=== PATIENT | female | born 1955 | race African-American/Black ===

== ENCOUNTER 2018-12-11 03:37 | Emergency (ER) | payer MEDICARE ==
[2018-12-11] MEDS ORDERED: NALOXONE HCL INJ/PF 0.4 MG/1 ML SDV ONE (03:41)
[2018-12-11] MEDS ORDERED: RINGERS SOLUTION,LACTATED 1,000 ML IV ONE (03:49)
--- NOTE | 2018-12-11 03:51 | ER Document Report ---
ED General <VIDAL JOSEPHN C - Last Filed: 12/11/18 05:23> <BROOKLYN JOSEPH A - Last Filed: 12/11/18 10:54> - General Chief Complaint: Shortness Of Breath Stated Complaint: DIFFICULTY BREATHING Time Seen by Provider: 12/11/18 03:49 Notes: Patient is a 63-year-old female with history of hypertension that presents to the emergency department for chief complaint of shortness of breath. Patient apparently woke up feeling short of breath, she did have outpatient dental surgery earlier today with anesthesia, was discharged home with oxycodone, ibuprofen and penicillin. She has been having episodes where she is feeling dizzy, and having brief episodes of feeling short of breath when she is breathing heavy and that is of brought her to the emergency department. She denies having any chest pain associated with this, denies fevers, chills, night sweats, nausea, vomiting, abdominal pain, dysuria hematuria. She states she had 2 molars extracted in her upper right mouth. Past Medical History: Hypertension Past Surgical History: Social History: Denies tobacco, alcohol or drug use. Family History: Reviewed and noncontributory for presenting illness Allergies: Reviewed, see documented allergy list. REVIEW OF SYSTEMS: Other than noted above, the 12 point review of systems was reviewed with the patient and were negative, all pertinent findings are included in the HPI. PHYSICAL EXAMINATION: Vital signs reviewed, nursing noted reviewed. GENERAL: Patient appears, anxious on exam with somewhat of a bizarre affect HEAD: Atraumatic, normocephalic. EYES: Eyes appear normal, extraocular movements intact, sclera anicteric, conjunctiva are normal. PERRLA, but pupils are constricted ENT: nares patent, oropharynx clear without exudates. Moist mucous membranes. The patient's upper right posterior molars, have been extracted, and no active bleeding, appear to be healing well from recent extraction. NECK: Normal range of motion, supple without lymphadenopathy LUNGS: Rapid shallow breathing, however lungs are clear to auscultation bilaterally. HEART: Heart rate mildly bradycardic, regular rhythm, no audible murmur. ABDOMEN: Soft, nontender, normoactive bowel sounds. No rebound, guarding, or rigidity. No masses appreciated. EXTREMITIES: Nontender, good range of motion, no pitting or edema. NEUROLOGICAL: No focal neurological deficits. Moves all extremities spontaneously Motor and sensory grossly intact on exam. PSYCH: Bizarre affect, appears mildly anxious SKIN: Warm, Dry, normal turgor, no rashes or lesions noted on exposed skin (TATI JOSEPH) - Related Data Allergies/Adverse Reactions: Iodinated Contrast- Oral and IV Dye Allergy (Verified 12/11/18 07:41) Past Medical History - Social History Smoking Status: Never Smoker Family History: CAD <BROOKLYN JOSEPH - Last Filed: 12/11/18 10:54> - Vital signs Vitals: Resp 13 12/11/18 03:42 Course - Laboratory Result Diagrams: 12/11/18 03:45 12/11/18 03:45 <TATI JOSEPH - Last Filed: 12/11/18 05:23> - Laboratory Result Diagrams: 12/11/18 03:45 12/11/18 03:45 <BROOKLYN JOSEPH - Last Filed: 12/11/18 10:54> - Re-evaluation Re-evalutation: Patient seen and examined vital signs reviewed. Laboratory data and/or imaging were ordered as appropriate for the patient's presenting symptoms and complaint, with consideration of any critical or life threatening conditions that may be associated with their obtained history and exam as noted above. Patient was treated with IV Narcan 0.4 mg, given she is recently started on oxycodone, she had a total of 3 tablets this evening, patient did have an i ncrease in her heart rate, but was still having intermittently rapid breathing. Results were reviewed when available and demonstrated unremarkable work-up, negative CT of the head, negative CBC, unremarkable CMP, negative troponin, EKG demonstrated sinus rhythm without concerning for ischemia, chest x-ray negative as well. I did order a d-dimer, that was slightly elevated, patient has an allergy to IVP dye, therefore VQ scan was ordered, I do have a low suspicion for PE, given the patient just had surgery, but given the patient's having intermittent rapid breathing and dyspnea, did want to rule this out and therefore will pursue the VQ scan. The patient was re-evaluated and was still appearing rather anxious, I advised her to to try to control her breathing, by breathing through nose and out her mouth, I did offer to give her a low-dose of IV Ativan, but she wanted to try to slow her breathing on her own. She did appear anxious, and I think she may be having a panic attack versus side effect from anesthesia/oxycodone. At this point, I will sign out the VQ scan to my colleague, Dr. Kirsten Joseph, to follow-up on that and to review the results with the patient. *Note is created using voice recognition software and may contain spelling, syntax or grammatical errors. (TATI JOSEPH) 12/11/18 10:45 Patient seen and evaluated by myself. She has normal respirations. She is in no acute distress. She states she is feeling much better. Her VQ scan is normal. At this point I agree that her symptoms may have been a side effect from the pain medication and anesthesia. She was advised to take Tylenol and ibuprofen instead of the Percocet. Currently she states she does not have any postoperative pain. She was advised to follow with a primary care provider in the area. She will return for new or worsening symptoms. She is stable and in agreement with plan of care at discharge. (BROOKLYN JOSEPH) - Vital Signs Vital signs: Temp Pulse Resp BP Pulse Ox 97.4 F 12 125/71 97 12/11/18 03:45 12/11/18 09:17 12/11/18 09:17 12/11/18 09:17 - Laboratory Laboratory results interpreted by me: 12/11/18 12/11/18 12/11/18 03:42 03:45 03:45 D-Dimer 0.59 H Glucose 151 H POC Glucose 145 H AST 47 H Urine Ketones 12/11/18 06:38 D-Dimer Glucose POC Glucose AST Urine Ketones TRACE H Discharge <TATI JOSEPH - Last Filed: 12/11/18 05:23> <BROOKLYN JOSEPH - Last Filed: 12/11/18 10:54> - Discharge Clinical Impression: Shortness of breath Condition: Stable Disposition: HOME, SELF-CARE Instructions: Dyspnea, Nonspecific ([facility]), Anxiety ([facility]) Additional Instructions: Please return to the emergency department if you have any worsening, or concern of your symptoms. Please return to the emergency department if you develop chest pain, difficulty breathing, severe abdominal pain, or ongoing vomiting. Please follow-up with your primary care physician in 2-3 days and any other recommended physicians. If prescribed, take all medications as directed. If you have any questions or concerns do not hesitate to return the emergency department for evaluation. Referrals: [facility] [Provider Group] - Follow up as needed
[2018-12-11 03:59] LABS: ABSOLUTE LYMPHOCYTES (AUTO) 1.6 10^3/uL (0.5-4.7); ABSOLUTE MONOCYTES (AUTO) 0.5 10^3/uL (0.1-1.4); ABSOLUTE NEUT (AUTO) 5.1 10^3/uL (1.7-8.2); BASOPHILS % (AUTO) 0.6 % (0-2); EOSINOPHILS % (AUTO) 0.6 % (0-6); HEMATOCRIT 43.8 % (36.0-47.0); HEMOGLOBIN 14.4 g/dL (12.0-15.5); LYMPHOCYTES % (AUTO) 22.3 % (13-45); MEAN CORPUSCULAR HEMOGLOBIN 27.7 pg (27.0-33.4); MEAN CORPUSCULAR HGB CONC 32.8 g/dL (32.0-36.0); MEAN CORPUSCULAR VOLUME 85 fl (80-97); MONOCYTES % (AUTO) 6.4 % (3-13); PLATELET COUNT 183 10^3/uL (150-450); RED BLOOD COUNT 5.19 10^6/uL (3.72-5.28); RED CELL DISTRIBUTION WIDTH 13.9 % (11.5-14.0); SEGMENTED NEUTROPHILS % (AUTO) 70.1 % (42-78); TOTAL CELLS COUNTED % (AUTO) 100 %; WHITE BLOOD COUNT 7.2 10^3/uL (4.0-10.5)
--- NOTE | 2018-12-11 04:21 | RADIOLOGY REPORT (SQ) ---
EXAM DESCRIPTION: XR CHEST 1 VIEW COMPLETED DATE/TME: 12/11/2018 03:50 CLINICAL HISTORY: 63 years, Female, DYSPNEA COMPARISON: None. NUMBER OF VIEWS: One TECHNIQUE: AP view the chest LIMITATIONS: None. FINDINGS: The lungs are clear. The heart is normal in size. There is no pneumothorax or pleural effusion. There is no acute fracture. IMPRESSION: No acute cardiopulmonary abnormality. copyright 2010 [employer]- All Rights Reserved
--- NOTE | 2018-12-11 04:22 | RADIOLOGY REPORT (SQ) ---
EXAM DESCRIPTION: CT HEAD WITHOUT IV CONTRAST COMPLETED DATE/TME: 12/11/2018 03:52 CLINICAL HISTORY: 63 years, Female, ALTERED MENTAL STATUS COMPARISON: None. TECHNIQUE: Axial CT images of the brain were obtained without contrast. Sagittal and coronal reformats were performed. [facility] Images stored on PACS. All CT scanners at this facility use dose modulation, iterative reconstruction, and/or weight based dosing when appropriate to reduce radiation dose to as low as reasonably achievable (ALARA). [facility]: Dose Right [facility]: CareDose [facility]: Dose Right [facility]: Teradose 4D [facility]: [employer] LIMITATIONS: None. FINDINGS: There is no acute cortical infarct, hemorrhage, mass, edema, hydrocephalus, or extra-axial fluid collection. The astorga-white matter differentiation is preserved. There are periventricular and deep white matter chronic microvascular changes. The paranasal sinuses and mastoid air cells are clear. There is no acute fracture. IMPRESSION: No acute intracranial abnormality. TECHNICAL DOCUMENTATION: Quality ID # 436: Final reports with documentation of one or more dose reduction techniques (e.g., Automated exposure control, adjustment of the mA and/or kV according to patient size, use of iterative reconstruction technique) copyright 2010 [employer]- All Rights Reserved
[2018-12-11 04:23] LABS: ALANINE AMINOTRANSFERASE 33 U/L (9-52); ALBUMIN 4.5 g/dL (3.5-5.0); ALKALINE PHOSPHATASE 59 U/L (38-126); ANION GAP 9 (5-19); ASPARTATE AMINO TRANSFERASE 47 U/L (14-36); BILIRUBIN,DIRECT 0.3 mg/dL (0.0-0.4); BILIRUBIN,TOTAL 0.5 mg/dL (0.2-1.3); BLOOD UREA NITROGEN 7 mg/dL (7-20); CARBON DIOXIDE 28 mmol/L (22-30); CHLORIDE 106 mmol/L (98-107); GLUCOSE 151 mg/dL (75-110); POTASSIUM 4.2 mmol/L (3.6-5.0); SODIUM 142.9 mmol/L (137-145); TOTAL PROTEIN 7.8 g/dL (6.3-8.2)
[2018-12-11 06:51] LABS: APPEARANCE,URINE CLEAR; BILIRUBIN,URINE NEGATIVE (NEGATIVE); COLOR,URINE STRAW; GLUCOSE, URINE NEGATIVE (NEGATIVE); KETONES,URINE TRACE mg/dL (NEGATIVE); LEUKOCYTE ESTERASE,URINE NEGATIVE (NEGATIVE); NITRITE,URINE NEGATIVE (NEGATIVE); PROTEIN,URINE NEGATIVE (NEGATIVE); UROBILINOGEN,URINE NEGATIVE mg/dL (<2.0)
--- NOTE | 2018-12-11 10:26 | RADIOLOGY REPORT (SQ) ---
EXAM DESCRIPTION: NM LUNG VENT/PERF SCAN COMPLETED DATE/TIME: 12/11/2018 10:13 am REASON FOR STUDY: dyspnea, elevated d dimer COMPARISON: AP chest 12/11/2018 RADIONUCLIDE AND DOSE: 5.4 millicuries TC-99m MAA Intravenous 31.9 millicuries TC-99m DTPA Inhaled aerosol TECHNIQUE: Eight views of the lungs acquired post ventilation of DTPA aerosol. Eight matching views of the lungs acquired following injection of MAA. LIMITATIONS: None. FINDINGS: VENTILATION: Symmetric and homogeneous distribution of DTPA aerosol during ventilatory pha se. No significant areas of photopenia. PERFUSION: Perfusion images with normal homogenous activity and no wedge-shaped or segmental defects. No ventilation-perfusion mismatches. OTHER: No other significant finding. IMPRESSION: NORMAL VENTILATION-PERFUSION LUNG SCAN. NEGATIVE FOR PULMONARY EMBOLI. TECHNICAL DOCUMENTATION: JOB ID: [id number] [employer]- All Rights Reserved Reading location - IP/workstation name: [email or web address]
[2018-12-11 11:07] VITALS: BP 148/73
--- NOTE | 2018-12-11 17:59 | EKG REPORT ---
SEVERITY:- ABNORMAL ECG - SINUS RHYTHM : Confirmed by: Pete Pike 11-Dec-2018 17:57:52
== END 2018-12-11 11:00 | disposition home or self-care (01) ==
LOC: ER 03:37
DX: R06.02 Shortness of breath (principal); I10 Essential (primary) hypertension; R42 Dizziness and giddiness
CPT/HCPCS: 93005; 99285; 96361; 96374; 36415; 82962; 85025; 80053; 81001; 84484; 85379; 71045; 78582; 70450; 93010; A9540; A9567; J2310; J7120; Q9969

== ENCOUNTER → 2020-05-12 | Outpatient (CLI) | payer MEDICARE ==
[2020-05-12 10:24] VITALS: BP 165/80
--- NOTE | 2020-05-12 10:24 | ER RDC ASSESSMENT REPORT ---
Intake - In the Last 14 days Have you traveled outside [place]?: No Have you been in close contact with someone CONFIRMED: Yes Worked in Healthcare?: No - Symptoms Subjective Fever(Haines feverish): No Chills: No Muscule Aches: No Runny Nose: No Sore Throat: No Cough (New or worsening chronic cough): No Shortness of breath: No Nausea or Vomiting: No Headache: No Abdominal Pain: No Diarrhea(3 or more loose stools in last 24 hours): No - Do you have any of the following Chronic lung disease: Asthma or emphysema or COPD: Yes Chronic Lung Disease Comment: History of asthma Cystic Fibrosis: No Diabetes: No High Blood Pressure: No Cardiovascular Disease: No Chronic Kidney Disease: No Chronic Liver Disease: No Chronic blood disorder like Sickle Cell Disease: No Weak immune system due to disease or medication: No Neurologic condition that limits movement: No Developmental delay - Moderate to Severe: No Recent (within past 2 weeks) or current : No Morbid Obesity (>100 pounds over ideal weight): No Obesity Comment: Weight 183 pounds height 5 feet 4 inches - Objective Temperature: 98.6 F Pulse Rate: 85 Respiratory Rate: 16 Blood Pressure: 165/80 O2 Sat by Pulse Oximetry: 95 Objective: Given above, testing performed: If Testing Performed: Test Specimen Type Sent to General - General Information source: Patient Notes: Patient here at [facility] for Covid testing. Patient states has exposure to daughter who tested +2 days ago. Was in contact with her last week daughter dropped off package patient wore mask. Patient denies any symptoms. Patient's PCP is Dr. Mcclendon and recommended testing for Covid. - Related Data Allergies/Adverse Reactions: Iodinated Contrast Media [Iodinated Contrast- Oral and IV Dye] Allergy (Verified 12/11/18 07:41) Past Medical History - General Information source: Patient - Social History Smoking Status: Never Smoker Family History: CAD - Past Medical History Cardiac Medical History: Reports: Hx Hypertension Renal/ Medical History: Denies: Hx Peritoneal Dialysis Past Surgical History: Reports: Hx Oral Surgery Physical Exam - General General appearance: Appears well, Alert In distress: None Notes: PHYSICAL EXAMINATION: GENERAL: Well-appearing and in no acute distress. HEAD: Atraumatic, normocephalic. EYES: sclera anicteric, conjunctiva are normal. ENT: nares patent. Moist mucous membranes. NECK: Normal range of motion, supple without lymphadenopathy LUNGS: CTAB and equal. No wheezes rales or rhonchi. Respirations even and u nlabored lung sounds clear. HEART: Regular rate and rhythm without murmurs ABDOMEN: Soft, nontender, normal bowel sounds, no guarding. EXTREMITIES: Normal range of motion, no pitting edema. No cyanosis. NEUROLOGICAL: Cranial nerves grossly intact. Normal speech. Normal gait. PSYCH: Normal mood, normal affect. SKIN: Warm, Dry, normal turgor, no rashes or lesions noted Diagnostic Results Laboratory Results: Pending Covid testing results. Patient provided instructions regarding Covid to include: As a person under investigation for Covid 19, the [place] department of Health and Human Services, division of public health advises you to adhere to the following guidance until your test results are reported to you. If your test result is positive, you will receive additional information from your provider and your local health department at that time. Remain at home until you are cleared by the health provider or public health authorities. Keep a log of visitors to your home, notify any visitors to your home of your isolation status. If you plan to move to a new address or leave the [facility], notify the local health department in your County. Call your doctor or seek care if you have an urgent medical need. Before seeking medical care, call ahead to get instructions from the provider before arriving at the medical office clinic or hospital. Notify them that you are being tested for the virus that causes Covid 19 so that arrangements can be made, as necessary, to prevent transmission to others in the healthcare setting. Next, notify the local health department in your county. If a medical emergency arises and you need to call 911, inform the first responders that you are being tested for the virus that causes Covid 19. Next, notify the local health department in your county. Patient Education/Counseling Counseling/Education: Patient presents with upper respiratory symptoms worrisome for possible Covid 19. Patient does not have emergency worring symptoms such as difficulty breathing, shortness of breath, chest pain, pressure, confusion or cyanosis. Patient appears suitable for discharge. Patient instructed to follow-up with PCP Dr. Mcclendon. Patient's vital signs are stable and patient is nontoxic in appearance. Good return precautions have been discussed with patient, patient verbalized understanding and is agreeable with discharge plan of care at this time. RDC Discharge - Discharge Clinical Impression: Encounter for screening laboratory testing for COVID-19 virus in asymptomatic patient Condition: Stable Disposition: Home; Selfcare
== END ==
LOC: RDC 09:45
PROVIDERS: ATTEND Nurse Practitioner Family
DX: Z20.828 Contact with and (suspected) exposure to other viral communicable diseases (principal); I10 Essential (primary) hypertension; J45.909 Unspecified asthma, uncomplicated; Z91.041 Radiographic dye allergy status
CPT/HCPCS: 99201; U0003; G0463; C9803; 87635; 99211